=== PATIENT | female | born 1980 | race Caucasian/White ===

== ENCOUNTER 2021-10-05 14:53 | Emergency (ER) | payer SELFPAY ==
[~2021-10-05] VITALS: Ht 152.4 cm; Wt 63.5 kg
[2021-10-05 14:54] VITALS: BP 130/72
--- NOTE | 2021-10-05 15:09 | ED.ADGEN ---
General Adult EDM: Chief Complaint: FOOT INJURY PAIN HPI: HPI: Patient is a 41 year old male coming in for right foot and ankle pain and swelling. Patient states she was walking to the schedule she lost her footing 2 days ago and fell down 1 step. Says she hit her knee but it feels fine now. Has been able to bear weight with pain. Says she has tingling on her foot but no loss of sensation. No prior injuries or surgeries to right foot Review of Systems: Review of Systems: All other systems within normal limits except for as noted in the HPI Allergies: Allergies: Allergies Coded Allergies Type Severity Reaction Last Updated Verified No Known Drug Allergies 10/05/21 No Physical Exam: PE: Constitutional: Well developed, well nourished, no acute distress, non-toxic appearance. [] HENT: Normocephalic, atraumatic, bilateral external ears normal, nose normal. [] Eyes: PERRLA, conjunctiva normal, no discharge. [] Neck: No rigidity, supple, no stridor. [] Cardiovascular: Regular rate and rhythm, brisk cap refill [] Lungs & Thorax: Non labored symmetric respirations, no tachypnea or respiratory distress [] Abdomen: Soft, nondistended. Skin: Warm, dry, no erythema, no rash. [] Back: Unremarkable Extremities: No deformities, range of motion grossly intact, no lower extremity edema. Swelling and tenderness over right lateral malleolus and foot [] Neurologic: Alert and oriented X 3, no focal deficits noted. [] Psychologic: Affect normal, judgement normal, mood normal. [] Current Patient Data: Vital Signs: Vital Signs Date Time Temp Pulse Resp B/P (MAP) Pulse Ox O2 Delivery O2 Flow Rate FiO2 10/05/21 14:54 100.2 105 17 130/72 (91) 100 Room Air 100.2 EKG: EKG: [] Heart Score: C/O Chest Pain: No Risk Factors: Risk Factors: DM, Current or recent (<one month) smoker, HTN, HLP, family h istory of CAD, obesity. Risk Scores: Score 0 - 3: 2.5% MACE over next 6 weeks - Discharge Home Score 4 - 6: 20.3% MACE over next 6 weeks - Admit for Clinical Observation Score 7 - 10: 72.7% MACE over next 6 weeks - Early Invasive Strategies Radiology/Procedures: Radiology/Procedures: [][facility] [address] [place] [address] IMAGING REPORT Signed PATIENT: RENETTA PHAM ACCOUNT: [id number] : 1980 LOCATION: ER AGE: 41 SEX: F EXAM STATUS: REG ER ORD. PHYSICIAN: BESSIE LEWIS MD REASON: injury PROCEDURE: FOOT RIGHT 3V EXAMINATION: Right ankle and right foot radiographs. VIEWS: 3 views of the right ankle and 3 views of the right foot COMPARISON: None INDICATION:41 years, Female, pain, injury. FINDINGS: No acute fracture, dislocation or subluxation. Ankle mortise and talar dome are intact. No soft tissue swelling or joint effusion. IMPRESSION: No acute osseous process. Electronically signed by: Mary Toro MD (10/05/2021 3:55 PM) [facility] DICTATED and SIGNED BY: MARY TORO MD DATE: 10/05/21 [id number] Course & Med Decision Making: Course & Med Decision Making Pertinent Labs and Imaging studies reviewed. (See chart for details) [] Filiberto Disclaimer: Filiberto Disclaimer: This electronic medical record was generated, in whole or in part, using a voice recognition dictation system. Departure Departure Impression: Primary Impression: Right ankle sprain Disposition: HOME / SELF CARE / HOMELESS Condition: STABLE Referrals: UNKNOWN PCP NAME (PCP) Patient Instructions: RICE - Routine Care for Injuries BESSIE LEWIS MD Oct 05, 2021 15:09
--- NOTE | 2021-10-05 15:57 | RAD ---
EXAMINATION: Right ankle and right foot radiographs. VIEWS: 3 views of the right ankle and 3 views of the right foot COMPARISON: None INDICATION:41 years, Female, pain, injury. FINDINGS: No acute fracture, dislocation or subluxation. Ankle mortise and talar dome are intact. No soft tissu e swelling or joint effusion. IMPRESSION: No acute osseous process. Electronically signed by: Noreen Toro MD (10/05/2021 3:55 PM) [facility]
== END 2021-10-05 16:46 | disposition home or self-care (01) ==
LOC: ER 14:53
DX: S93.401A Sprain of unspecified ligament of right ankle, initial encounter (principal); W10.8XXA Fall (on) (from) other stairs and steps, initial encounter; Y93.89 Activity, other specified; Y92.89 Other specified places as the place of occurrence of the external cause; Y99.8 Other external cause status
CPT/HCPCS: 73610; 73630; 99284